=== PATIENT | male | born 1950 | race Caucasian/White ===

== ENCOUNTER 2022-10-26 19:50 | Inpatient (IN) | payer MEDICARE, OTHER ==
[~2022-10-26] VITALS: Ht 170.2 cm; Wt 58.5 kg
[2022-10-26] MEDS ORDERED: IV NS 0.9% 500 ML BAG IV ONE (20:00)
--- NOTE | 2022-10-26 20:22 | NUR ---
COVID SWAB COLLECTED
--- NOTE | 2022-10-26 20:24 | NUR ---
BALA FROM [facility] FOR GTUBE REPLACEMENT, "PT PULLED IT OUT IN THE AM" GTUBE SITE CLOSED, NO S/SX OF INFECTION. PT A/OX2. TOLERATING R/A WELL WITH NO RESP DISTRESS. SAFETY MEASURES IN PLACE.
--- NOTE | 2022-10-26 20:34 | NUR ---
BLOOD COLLECTED AND SENT TO LAB
--- NOTE | 2022-10-26 20:34 | NUR ---
IV LINE ESTABLISHED, RFA18G
--- NOTE | 2022-10-26 20:39 | NUR ---
MOVE SHEET SUBMITTED
[2022-10-26 20:44] LABS: BASOPHILS % (AUTO) 0.3 % (0.0-2.0); EOSINOPHILS % (AUTO) 0.6 % (0.0-6.0); HEMATOCRIT 45 % (39-51); HEMOGLOBIN 15.2 g/dL (13.5-17.5); LYMPHOCYTES % (AUTO) 12.3 % (20.0-44.0); MEAN CORPUSCULAR HGB CONC 34 g/dl (31.0-36.0); MEAN CORPUSCULAR VOLUME 87 fL (80-96); MONOCYTES # (AUTO) 0.6 K/uL (0.1-1.30); MONOCYTES % (AUTO) 7.8 % (2.0-12.0); NEUTROPHILS # (AUTO) 6.1 K/uL (1.8-8.9); PLATELET COUNT (AUTO) 268 K/uL (150-450); RED BLOOD CELL COUNT(AUTO) 5.12 MIL/uL (4.5-6.0); WHITE BLOOD COUNT (AUTO) 7.8 K/uL (4.3-11.0)
[2022-10-26 21:04] LABS: CALCIUM, SERUM 8.9 mg/dL (8.5-10.1); CREATININE 0.9 mg/dL (0.6-1.3)
[2022-10-26 21:08] LABS: ALBUMIN 3.4 g/dL (3.4-5.0); BILIRUBIN,DIRECT 0.2 mg/dL (0.0-0.2); BILIRUBIN,TOTAL 0.6 mg/dL (0.2-1.0)
--- NOTE | 2022-10-26 23:15 | NUR ---
REPORT GIVEN TO SONYA HAZEL.
--- NOTE | 2022-10-26 23:21 | NUR ---
PT TRANFERRED TO [facility] VIA HOSPITAL PROTOCOL. VSS.
[2022-10-26 23:30] VITALS: BP 144/90
[2022-10-26] MEDS ORDERED: ACETAMINOPHEN 650 MG/SUPP.RECT RC PRN (23:30)
[2022-10-26] MEDS ORDERED: ONDANSETRON HCL/PF 4 MG/2 ML VIAL IVP PRN (23:30)
[2022-10-26] MEDS ORDERED: hydrALAZINE HCL IV 20 MG VIAL IV PRN (23:30)
[2022-10-26] MEDS ORDERED: Z GUARD REMEDY 4 OZ OINT TP PRN (23:30)
--- NOTE | 2022-10-26 23:30 | NUR ---
MS RN ADMITTING NOTES PT ARRIVED TO UNIT VIA GURNEY BY ER STAFF. PT A/O X2, CONFUSED AND FORGETFUL. TRIED ASKING ADMISSION QUESTIONS BUT PT UNABLE TO RETURN ANSWERS. NOTED NO S/S OF SOB OR DISTRESS. IV RFA #18G, SL, PATENT AND INTACT. SKIN INTACT WITH REDNESS NOTED ON SCROTUM AND DRYNESS ON B/L HEELS. PHOTO TAKEN AND DOCUMENTED IN PT CHART. SAFETY PRECAUTIONS PERFORMED: BED LOCKED AND IN LOW POSITION, BED ALARM ON, SIDE RAILS UP X2, CALL LIGHT WITHIN REACH. WILL CONTINUE TO MONITOR AND ASSIST.
[2022-10-26] MEDS ORDERED: MORPHINE SULFATE INJ 4 MG/ML DISP.SYRIN IV PRN (23:45)
[2022-10-27] MEDS: ENOXAPARIN SODIUM 40 MG/0.4 ML DISP.SYRIN SQ SCH ×2 (00:25→21:27)
[2022-10-27] MEDS: IV D5/ 0.9% NACL 1,000 ML IV PRN (00:30)
[2022-10-27] MEDS ORDERED: CLOP75TA15 GT (04:19)
[2022-10-27] MEDS ORDERED: SENN-261 GT (04:19)
[2022-10-27] MEDS ORDERED: POLY17PO4 GT (04:19)
[2022-10-27] MEDS ORDERED: DOCU100C36 GT (04:19)
[2022-10-27] MEDS ORDERED: CYAN10006 IM (04:19)
[2022-10-27] MEDS ORDERED: CITA20TA19 GT (04:19)
[2022-10-27] MEDS ORDERED: MULT-594 PEG (04:19)
[2022-10-27] MEDS ORDERED: BISA-79 RC (04:19)
[2022-10-27] MEDS ORDERED: TERA2CAP4 PEG (04:19)
[2022-10-27] MEDS ORDERED: LACT10SO3 GT (04:19)
[2022-10-27] MEDS ORDERED: ASPI-1169 GT (04:19)
[2022-10-27] MEDS ORDERED: ROPI0.255 GT (04:19)
[2022-10-27] MEDS ORDERED: POLY119P17 GT (04:19)
[2022-10-27] MEDS ORDERED: FOLI0.4T6 GT (04:19)
[2022-10-27] MEDS ORDERED: TERA2CAP4 GT (04:19)
[2022-10-27] MEDS ORDERED: ACET325T53 GT (04:19)
[2022-10-27] MEDS ORDERED: MAGN400O21 GT (04:19)
--- NOTE | 2022-10-27 07:10 | NUR ---
RN NOTE PT REFUSED BLOOD DRAW PER LAB STAFF, MENTIONING THAT "HE JUST PUSHED MY ARM AWAY".
--- NOTE | 2022-10-27 07:25 | NUR ---
MS RN CLOSING NOTES PT IN BED, SLEEPING AT THIS TIME. A/O X2, CONFUSED AND FORGETFUL. STABLE ON RA WITH NO S/S OF SOB OR DISTRESS. IV RFA #18G, RUNNING D5NS @ 50 ML/HR. ALL CARE PROVIDED AND PRESCRIBED MEDICATIONS TOLERATED WELL. SAFETY PRECAUTIONS MAINTAINED: BED LOCKED AND IN LOW POSITION, BED ALARM ON, SIDE RAILS UP X2, CALL LIGHT WITHIN REACH. WILL ENDORSE KENNA TO FENDER FINISHER NURSE.
--- NOTE | 2022-10-27 07:30 | NUR ---
RN MS NOTES PT IN BED, ASLEEP, EASY TO AROUSE, ALERT TO SELF, NO SIGN OF PAIN OR DISTRESS, CALL LIGHT WITHIN REACH, KEPT COMFORTABLE IN BED, IV FLUIDS INFUSING WELL.
[2022-10-27 08:00] VITALS: BP 103/70
[2022-10-27] MEDS ORDERED: MULT-447 GT (08:44)
[2022-10-27] MEDS ORDERED: LACT-96 GT (08:44)
[2022-10-27] MEDS: PANTOPRAZOLE 40 MG VIAL IV SCH (08:49)
[2022-10-27 09:39] LABS: CALCIUM, SERUM 8.2 mg/dL (8.5-10.1); CREATININE 0.7 mg/dL (0.6-1.3); MAGNESIUM 2.2 mg/dL (1.8-2.4); PHOSPHORUS 3.3 mg/dL (2.5-4.9)
[2022-10-27 10:04] LABS: BASOPHILS % (AUTO) 0.3 % (0.0-2.0); EOSINOPHILS % (AUTO) 1.2 % (0.0-6.0); HEMATOCRIT 42 % (39-51); HEMOGLOBIN 14.3 g/dL (13.5-17.5); LYMPHOCYTES # (AUTO) 1.1 K/uL (0.8-4.8); LYMPHOCYTES % (AUTO) 17.2 % (20.0-44.0); MEAN CORPUSCULAR HGB CONC 34 g/dl (31.0-36.0); MEAN CORPUSCULAR VOLUME 87 fL (80-96); MONOCYTES # (AUTO) 0.5 K/uL (0.1-1.30); MONOCYTES % (AUTO) 8.5 % (2.0-12.0); NEUTROPHILS # (AUTO) 4.5 K/uL (1.8-8.9); NEUTROPHILS % (AUTO) 72.8 % (43.0-81.0); PLATELET COUNT (AUTO) 254 K/uL (150-450); RED BLOOD CELL COUNT(AUTO) 4.79 MIL/uL (4.5-6.0); WHITE BLOOD COUNT (AUTO) 6.1 K/uL (4.3-11.0)
[2022-10-27 16:00] VITALS: BP 111/82
--- NOTE | 2022-10-27 19:02 | NUR ---
RN MS NOTES PT IN BED, RESTING, NO SIGN OF PAIN OR DISTRESS, IV FLUIDS INFUSING WELL, CALL LIGHT WITHIN REACH, PM CARE DONE, BED ALARM ON AT ALL TIMES.
--- NOTE | 2022-10-27 19:30 | NUR ---
MS RN OPENING NOTES RECEIVED PATIENT AWAKE IN BED.PATIENT IS A/O X2, CONFUSED AND FORGETFUL. REORIENT THE PATIENT.STABLE ON RA WITH NO S/S OF SOB OR DISTRESS NOTED. IV RFA #18G, RUNNING D5NS @ 50 ML/HR. NPO FOR POSSIBLE SURGERY IN AM. ALL SAFETY PRECAUTIONS MAINTAINED: BED LOCKED AND IN LOW POSITION, BED ALARM ON, SIDE RAILS UP X2, CALL LIGHT WITHIN REACH. HEAD OF THE BED ELEVATED FOR ASPIRATION PRECAUTION. WILL CONTINUE TO MONITOR CLOSELY.
[2022-10-27 20:00] VITALS: BP 138/100
[2022-10-28] MEDS: IV D5/ 0.9% NACL 1,000 ML IV PRN ×2 (02:17→17:47)
[2022-10-28 06:37] LABS: BASOPHILS % (AUTO) 0.4 % (0.0-2.0); EOSINOPHILS % (AUTO) 1.2 % (0.0-6.0); HEMATOCRIT 43 % (39-51); HEMOGLOBIN 14.6 g/dL (13.5-17.5); LYMPHOCYTES # (AUTO) 1.2 K/uL (0.8-4.8); MEAN CORPUSCULAR HGB CONC 34 g/dl (31.0-36.0); MEAN CORPUSCULAR VOLUME 88 fL (80-96); MONOCYTES # (AUTO) 0.5 K/uL (0.1-1.30); MONOCYTES % (AUTO) 8.9 % (2.0-12.0); NEUTROPHILS % (AUTO) 69.5 % (43.0-81.0); PLATELET COUNT (AUTO) 234 K/uL (150-450); RED BLOOD CELL COUNT(AUTO) 4.93 MIL/uL (4.5-6.0); WHITE BLOOD COUNT (AUTO) 5.8 K/uL (4.3-11.0)
[2022-10-28 06:45] LABS: CALCIUM, SERUM 8.3 mg/dL (8.5-10.1); CREATININE 0.7 mg/dL (0.6-1.3); POTASSIUM 4.1 mmol/L (3.5-5.1)
--- NOTE | 2022-10-28 06:50 | NUR ---
MS RN CLOSING NOTES PATIENT AWAKE IN BED.PATIENT IS A/O X2, CONFUSED AND FORGETFUL. REORIENT THE PATIENT.STABLE ON RA WITH NO S/S OF SOB OR DISTRESS NOTED. IV RFA #18G, RUNNING D5NS @ 50 ML/HR. NPO FOR POSSIBLE SURGERY TUESDAY. ALL SAFETY PRECAUTIONS MAINTAINED: BED LOCKED AND IN LOW POSITION, BED ALARM ON, SIDE RAILS UP X2, CALL LIGHT WITHIN REACH. HEAD OF THE BED ELEVATED FOR ASPIRATION PRECAUTION. WILL ENDORSE FOR KENNA.
[2022-10-28 07:00] VITALS: BP 120/78
--- NOTE | 2022-10-28 07:00 | NUR ---
MS RN OPENING NOTES: RECEIVED PATIENT IN BED ASLEEP EASILY AROUSED WITH STIMULI. PATIENT A/O X2 AND ABLE TO VERBALIZED NEEDS. NO SOB OR CARDIAC DISTRESS NOTED ON ROOM AIR AND TOLERATING WELL. DENIES PAIN AT THIS TIME. IV ACCESS ON RFA GAUGE 18, PATENT INTACT AND INFUSING D5NS @50 ML/HR. OLD GTUBE SITE STILL OPEN WITH CRUSTED DISCHARGE, KEPT DRY CLEAN AND COVERED WITH DD.SAFETY MEASURES MAINTAINED: BED LOCKED AND LOWEST POSITION SIDE RAILS UP X 2. CALL ;LIGHT IN EASY REACH FOR HELP AND WILL MONITOR ACCORDINGLY.
[2022-10-28] MEDS: PANTOPRAZOLE 40 MG VIAL IV SCH (09:02)
--- NOTE | 2022-10-28 14:00 | NUR ---
RN NOTES: TRIED TO CALL MS ROBIN TEAGUE (NEXT TO KIN/CONSERVATOR) TO GET A CONSENT FOR G TUBE INSERTION. I LEFT A VOICE MESSAGE TO HER NUMBER. WILL FOLLOW UP AND WILL ENDORD=SE IN CASE.
[2022-10-28 16:00] VITALS: BP 121/80
--- NOTE | 2022-10-28 16:00 | NUR ---
RN NOTES: TRIED TO REACH MS ROBIN TEAGUE (CONSERVATOR) NO RESPONSE LEFT VOICE MESSAGE WILL CONTINUE TO FOLLOW UP.
--- NOTE | 2022-10-28 18:42 | NUR ---
MS RN CLOSING NOTES: PATIENT IN BED, AWAKE. A/O X1-2 AND ABLE TO VERBALIZED NEEDS. NO SOB OR CARDIAC DISTRESS NOTED, DENIES ANY PAIN AT THIS TIME. ON ROOM AIR AND TOLERATING WELL. MAINTAINED ON NPO. IV ACCESS ON RFA GAUGE 18 PATENT,INTACT AND INFUSING IV FLUID D5NS 1L @50ML/HR. SAFETY MEASURES MAINTAINED: BED LOCKED AND IN LOWEST POSITION, SIDE RAILS UP X 3. PT IS FOR EGD TOMORROW AM UNABLE TO GET CONSENT FROM MS KELLY CONSERVATOR [phone]. CALL LIGHT AND BED SIDE TABLE IN EASY REACH. ENDORSED TO DOCUMENT CLERK RN FOR CONTINUITY OF CARE.
--- NOTE | 2022-10-28 19:30 | NUR ---
MS RN OPENING NOTES RECEIVED PATIENT AWAKE IN BED.PATIENT IS A/O X2, CONFUSED AND FORGETFUL. REORIENT THE PATIENT.STABLE ON RA WITH NO S/S OF SOB OR DISTRESS NOTED. IV RFA #18G, RUNNING D5NS @ 50 ML/HR. NPO FOR GTUBE PLACEMENT. ALL SAFETY PRECAUTIONS MAINTAINED: BED LOCKED AND IN LOW POSITION, BED ALARM ON, SIDE RAILS UP X2, CALL LIGHT WITHIN REACH. HEAD OF THE BED ELEVATED FOR ASPIRATION PRECAUTION. WILL CONTINUE TO MONITOR CLOSELY.
[2022-10-28 20:00] VITALS: BP 126/77
--- NOTE | 2022-10-28 20:19 | NUR ---
RN NOTES CALLED ROBIN TEAGUE (CONSERVATOR) WITH THE PHONE NUMBER [phone] AT 2004 AND LEFT MASSAGE. WAITING FOR CALL BACK TO GET CONSENT FOR SURGERY.
--- NOTE | 2022-10-28 21:00 | NUR ---
RN NOTES HELD [facility] FOR 2100. PATIENT WILL HAVE SURGERY TOMORROW MORNING.
[2022-10-28] MEDS: ENOXAPARIN SODIUM 40 MG/0.4 ML DISP.SYRIN SQ SCH (22:00)
[2022-10-29 06:28] LABS: BASOPHILS % (AUTO) 0.4 % (0.0-2.0); EOSINOPHILS % (AUTO) 1.2 % (0.0-6.0); HEMATOCRIT 42 % (39-51); HEMOGLOBIN 14.4 g/dL (13.5-17.5); LYMPHOCYTES # (AUTO) 1.3 K/uL (0.8-4.8); MEAN CORPUSCULAR HGB CONC 34 g/dl (31.0-36.0); MEAN CORPUSCULAR VOLUME 87 fL (80-96); MONOCYTES # (AUTO) 0.4 K/uL (0.1-1.30); NEUTROPHILS # (AUTO) 3.5 K/uL (1.8-8.9); NEUTROPHILS % (AUTO) 66.4 % (43.0-81.0); PLATELET COUNT (AUTO) 244 K/uL (150-450); RED BLOOD CELL COUNT(AUTO) 4.83 MIL/uL (4.5-6.0); WHITE BLOOD COUNT (AUTO) 5.3 K/uL (4.3-11.0)
--- NOTE | 2022-10-29 06:58 | NUR ---
MS RN CLOSING NOTES PATIENT AWAKE IN BED.PATIENT IS A/O X2, CONFUSED AND FORGETFUL. REORIENT THE PATIENT.STABLE ON RA WITH NO S/S OF SOB OR DISTRESS NOTED. IV RFA #18G, RUNNING D5NS @ 50 ML/HR. NPO FOR GTUBE PLACEMENT. CONSENT NOT SIGNED YET SINCE CAN NOT CONTACT WITH CONSERVATOR . MS ROBIN TEAGUE. LAST NIGHT CALLED LEFT MASSAGE . NO CALL BACK.ALL SAFETY PRECAUTIONS MAINTAINED: BED LOCKED AND IN LOW POSITION, BED ALARM ON, SIDE RAILS UP X2, CALL LIGHT WITHIN REACH. HEAD OF THE BED ELEVATED FOR ASPIRATION PRECAUTION. WILL ENDORSE FOR KENNA.
[2022-10-29 07:00] VITALS: BP 121/78
[2022-10-29 07:28] LABS: CALCIUM, SERUM 8.3 mg/dL (8.5-10.1); CREATININE 0.7 mg/dL (0.6-1.3)
[2022-10-29] MEDS: PANTOPRAZOLE 40 MG VIAL IV SCH (09:00)
--- NOTE | 2022-10-29 09:22 | NUR ---
RN NOTE SURGICAL CONSENT FOR G-TUBE PLACEMENT SIGNED BY DOCTOR BRIONES.
[2022-10-29] MEDS ORDERED: ANESTHESIA TRAY IN PYXIS 1 EA TRAY MC ONE (09:23)
--- NOTE | 2022-10-29 16:54 | NUR ---
SENIOR PROCUREMENT MANAGER NOTE PATIENT DISCHARGED FROM FACILITY VIA AMBULANCE @ 1640. TRANSFERRED TO [facility]. IV TAKEN OUT PRIOR TO DISCHARGE. PATIENT HAD NO BELONGINGS.
== END 2022-10-29 16:44 | DRG 394 ==
LOC: ER 19:58 → MED 23:09
PROVIDERS: ADMIT Nurse Practitioner Acute Care; ATTEND Internal Medicine
PROC: 0DH63UZ Insertion of Feeding Device into Stomach, Percutaneous Approach (ICD-10-PCS; principal; 2022-10-29)
DX: K94.23 Gastrostomy malfunction (principal); E44.0 Moderate protein-calorie malnutrition; R62.7 Adult failure to thrive; K44.9 Diaphragmatic hernia without obstruction or gangrene; Z86.73 Personal history of transient ischemic attack (TIA), and cerebral infarction without residual deficits; R13.10 Dysphagia, unspecified; Z74.01 Bed confinement status; Z20.822 Contact with and (suspected) exposure to COVID-19; Y83.3 Surgical operation with formation of external stoma as the cause of abnormal reaction of the patient, or of later complication, without mention of misadventure at the time of the procedure; Y92.129 Unspecified place in nursing home as the place of occurrence of the external cause; I10 Essential (primary) hypertension; F32.A Depression, unspecified; F29 Unspecified psychosis not due to a substance or known physiological condition; Z88.5 Allergy status to narcotic agent; Z85.46 Personal history of malignant neoplasm of prostate
CPT/HCPCS: 36415; 43246; 71045-TC; 80048-TC; 80076-TC; 83735-TC; 84100-TC; 85025-TC; 85730-TC; 87081-TC; C9113; C9803; G0378; J0690; J1650; J2704; J3490; J7030; J7040; J7042